=== PATIENT | female | born 1970 | race American Indian/Alaskan Native ===

== ENCOUNTER 2018-07-30 04:39 | Emergency (ER) | payer OTHER ==
[2018-07-30 04:48] VITALS: BP 160/99
[2018-07-30] MEDS ORDERED: DECADRON IM ONE (07:22)
[2018-07-30] MEDS ORDERED: TORADOL IM ONE (07:22)
--- NOTE | 2018-07-30 08:01 | Emergency Department Report ---
Minor Respiratory (Peds) - HPI Chief Complaint: Headache Stated Complaint: ELEVATED BP Time Seen by Provider: 07/30/18 07:11 Duration: 1 Day Pain Location: Other (HEAD) Pain Severity: Moderate Symptoms: Yes Able to Tolerate Fluids, Yes Good Urine Output, Yes Active and Alert, No Fever, No Rhinorrhea, No Sore Throat, No Ear Pain, No Cough, No Shortness of Breath, No Sick Contacts Other History: Patient is a pleasant 48-year-old -[place] female who comes to the ER this morning with a headache. She is on Norvasc 10 mg daily. She took it yesterday morning. However she went to work and developed a headache so she took her Norvasc again which was approximately 18 hours later. Her blood pressure was elevated at that time. Upon coming to the ER though her blood pressure is 160/99. On exam patient reports a mild left-sided headache. She has no fever. No sinus symptoms. No trauma. Past medical history hypertension. Daily medications amlodipine ED Review of Systems ROS: Stated complaint: ELEVATED BP Other details as noted in HPI Comment: All other systems reviewed and negative Constitutional: denies: chills Eyes: denies: eye pain ENT: denies: ear pain Respiratory: denies: cough Cardiovascular: denies: palpitations Endocrine: denies: flushing Gastrointestinal: denies: nausea Genitourinary: denies: urgency Neurological: as per HPI, headache Psychiatric: denies: anxiety Hematological/Lymphatic: denies: easy bleeding Pediatric Past Medical History - Surgeries & Procedures Additional Surgical History: hyster. shoulder and knee - Chronic Health Problems Hx Asthma: No Hx Diabetes: No Hx HIV: No Hx Renal Disease: No Hx Sickle Cell Disease: No Hx Seizures: No Peds Minor Resp. exam - Exam General: Vital signs noted. No distress. Alert and acting appropriately. s1s2 lungs cta abd snt no edema noted no focal neuro def cn intact ambulatory Peds HEENT: Pharyngeal Erythema: No, Pharyngeal Exudates: No, Moist Mucous Membranes: Yes, Rhinorrhea: No, Conjuctival Injection: No Ear: Neither TM Bulge, Neither TM Erythema, Neither EAC Discharge Peds neck exam: Adenopathy: No, Supple: Yes Peds Lung exam: Good Air Exchange: Yes, Wheezes: No, Stridor: No, Cough: No, Nasal Flaring: No, Retractions: No, Use of Accessory Muscles: No Heart: Yes Regular, No Murmur Peds abdomen: Abdominal Tenderness: No, Peritoneal Signs: No, Normal Bowel S ounds: Yes, Distention: No Peds Skin Exam: Rash: No, Eczema: No Neurologic: Alert and oriented, no deficits. Musculoskeletal: Unremarkable. ED Course Vital Signs 07/30/18 04:44 Temperature 98.8 F Pulse Rate 97 H Respiratory 100 H Rate Blood Pressure 160/99 ED Medical Decision Making - Medical Decision Making medicated for headache with relief blood pressure rechecked and 136/80 pt was fearful when her bp was inc which resulted in the ER visit pt was reassured and educated she will keep bp log to take to her pcp discussed dietary modifications on dc VSS no complaints ambulatory and with a follow up plan of care. Critical care attestation.: If time is entered above; I have spent that time in minutes in the direct care of this critically ill patient, excluding procedure time. ED Disposition Clinical Impression: Hypertension, Headache Disposition: DC-01 TO HOME OR SELFCARE Is pt being admited?: No Does the pt Need Aspirin: No Condition: Stable Instructions: Hypertension (ED) Additional Instructions: DIET TOLERATED TODAY DRINK A LOT OF WATER TODAY ACTIVITY TOLERATED FOLLOW UP WITH PCP SHOULD SYMPTOMS PERSIST TAKE BP MED INSTRUCTED BP LOG EVERY DAY WE DISCUSSED MED ORDERED HERE TODAY Prescriptions: Ketorolac [Toradol] 10 mg PO Q6H PRN #10 tablet PRN Reason: Pain Referrals: TED ALEXANDRA MD [Primary Care Provider] - 3-5 Days Forms: Work/School Release Form(ED) Time of Disposition: 07:59
== END 2018-07-30 08:11 | disposition home or self-care (01) ==
LOC: ED 04:39
DX: I10 Essential (primary) hypertension (principal)
CPT/HCPCS: 96372; 99282; J1100; J1885

== ENCOUNTER 2018-10-02 04:43 | Emergency (ER) | payer OTHER ==
[2018-10-02] MEDS ORDERED: FIORICET PO ONE (08:17)
[2018-10-02] MEDS ORDERED: ZOFRAN ODT PO ONE (08:17)
--- NOTE | 2018-10-02 09:04 | Emergency Department Report ---
ED Headache HPI - General Chief Complaint: Headache Time Seen by Provider: 10/02/18 07:56 - History of Present Illness Timing/Duration: 24 hours Quality: mild, moderate Head Injury Location: frontal, occipital Recent Head Trauma: no recent headache/trauma, occasional headaches Associated Symptoms: denies: confusion, fatigue, facial pain, loss of conscious ness, nausea/vomiting, nasal congestion, nasal drainage Allergies/Adverse Reactions: Allergies No Known Allergies Allergy (Verified 07/30/18 04:47) Home Medications: Ambulatory Orders Ketorolac [Toradol] 10 mg PO Q6H PRN #10 tablet 07/30/18 Butalb/Acetamin/Caff 50-325-40 [Fioricet] 2 tab PO TID #30 tablet 10/02/18 Cyclobenzaprine [Flexeril] 10 mg PO QHS PRN #20 tablet 10/02/18 ED Review of Systems ROS: Stated complaint: Other details as noted in HPI Comment: All other systems reviewed and negative ED Past Medical Hx - Past Medical History Hx Hypertension: Yes Hx Diabetes: No Hx Renal Disease: No Hx Sickle Cell Disease: No Hx Seizures: No Hx Asthma: No Hx HIV: No - Surgical History Hx Cholecystectomy: Yes Additional Surgical History: hyster. shoulder and knee - Social History Smoking Status: Never Smoker Substance Use Type: Alcohol - Medications Home Medications: Home Medications Medication Instructions Recorded Confirmed Last Taken Type Ketorolac [Toradol] 10 mg PO Q6H PRN #10 tablet 07/30/18 Unknown Rx Butalb/Acetamin/Caff 50-325-40 2 tab PO TID #30 tablet 10/02/18 Unknown Rx [Fioricet] Cyclobenzaprine [Flexeril] 10 mg PO QHS PRN #20 tablet 10/02/18 Unknown Rx ED Physical Exam - General Limitations: No Limitations General appearance: alert, in no apparent distress - Head Head exam: Present: atraumatic, normocephalic - Eye Eye exam: Present: normal appearance - ENT ENT exam: Present: mucous membranes moist - Neck Neck exam: Present: normal inspection - Respiratory Respiratory exam: Present: normal lung sounds bilaterally. Absent: respiratory distress - Cardiovascular Cardiovascular Exam: Present: regular rate, normal rhythm. Absent: systolic murmur, diastolic murmur, rubs, gallop - GI/Abdominal GI/Abdominal exam: Present: soft, normal bowel sounds - Extremities Exam Extremities exam: Present: normal inspection - Back Exam Back exam: Present: normal inspection - Neurological Exam Neurological exam: Present: alert, oriented X3, normal gait - Expanded Neurological Exam Expanded Patient oriented to: Present: person, place, time Speech: Present: fluid speech Cerebellar function: Finger to Nose: Normal Sensory exam: Upper Extremity Light Touch: Normal, Lower Extremity Light Touch: Normal Motor strength exam: RUE: 5, LUE: 5, RLE: 5, LLE: 5 Best Eye Response ([place]): (4) open spontaneously Best Motor Response ([place]): (6) obeys commands Best Verbal Response ([place]): (5) oriented Lucille Total: 15 - Psychiatric Psychiatric exam: Present: normal affect, normal mood - Skin Skin exam: Present: warm, dry, intact, normal color. Absent: rash ED Course Vital Signs 10/02/18 04:43 Temperature 98.0 F Pulse Rate 84 Respiratory 18 Rate Blood Pressure 134/87 [Right] O2 Sat by Pulse 100 Oximetry ED Medical Decision Making - Medical Decision Making This is a 48-year-old female with a history of migraine who presents with acute onset of a headache Patient received 2 tablets of Fioricet and Zofran in the ED. Vital signs are normal patient is in no acute distress Discussed with patient follow-up with primary care physician. Discussed the patient and take medications as prescribed. Patient has no neurological deficit. Patient is alert and oriented 3 and understands all instructions given. Discussed drowsiness effect of Flexeril makes her drowsy and not to operate machinery while taking flexeril Critical care attestation.: If time is entered above; I have spent that time in minutes in the direct care of this critically ill patient, excluding procedure time. ED Disposition Clinical Impression: Headache, migraine Disposition: DC-01 TO HOME OR SELFCARE Is pt being admited?: No Does the pt Need Aspirin: No Condition: Stable Instructions: Tension Headache (ED), Migraine Headache (ED), Trigger Point Pain (ED), Fibromyalgia (ED) Additional Instructions: Make sure to follow up with the primary care physician as discussed. Take all your medications as you've been prescribed. Patient should continue taking her blood pressure medication and keep her blood pressure controlled. If you have any worsening symptoms or develop new symptoms please return to ED immediately. Prescriptions: Cyclobenzaprine [Flexeril] 10 mg PO QHS PRN #20 tablet PRN Reason: Muscle Spasm Butalb/Acetamin/Caff 50-325-40 [Fioricet] 2 tab PO TID #30 tablet Referrals: [facility] MD PATRICIA [Primary Care Provider] - 3-5 Days ARMANDO MURO MD [Staff Physician] - 3-5 Days LOBITO MCCLELLAN MD [Referring] - 3-5 Days DEJAN GOMEZ MD [Staff Physician] - 3-5 Days Forms: Work/School Release Form(ED) Time of Disposition: 09:11
[2018-10-02 09:22] VITALS: BP 128/74
== END 2018-10-02 09:21 | disposition home or self-care (01) ==
LOC: ED 04:43
DX: G43.909 Migraine, unspecified, not intractable, without status migrainosus (principal); I10 Essential (primary) hypertension; Z90.49 Acquired absence of other specified parts of digestive tract
CPT/HCPCS: 99282; Q0162

== ENCOUNTER 2018-10-03 22:07 | Emergency (ER) | payer OTHER ==
[2018-10-03 22:28] VITALS: BP 138/91
--- NOTE | 2018-10-03 22:28 | Emergency Department Report ---
Blank Doc - Documentation Documentation: 48 y old female presents with headache and body aches and nausea denies f/n/v/d describes aching pain labs cxr acc eval
[2018-10-03 23:03] LABS: Basophils % (Auto) 0.6 % (0.0-1.8); Eosinophils # (Auto) 0.1 K/mm3 (0.0-0.4); Eosinophils % (Auto) 2.6 % (0.0-4.3); Lymphocytes # (Auto) 2.1 K/mm3 (1.2-5.4); Lymphocytes % (Auto) 45.7 % (13.4-35.0); Mean Corpuscular HGB Conc 33 % (30-34); Mean Corpuscular Volume 87 fl (79-97); Monocytes # (Auto) 0.4 K/mm3 (0.0-0.8); Platelet Count 362 K/mm3 (140-440); Red Blood Count 4.51 M/mm3 (3.65-5.03)
--- NOTE | 2018-10-03 23:03 | XRay Report ---
PROCEDURE: XR CHEST ROUTINE 2V TECHNIQUE: Chest radiograph , PA and lateral views. HISTORY: Chest pain COMPARISONS: None . FINDINGS: Heart: Normal. Mediastinum/Vessels: Normal. Lungs/Pleural space: Normal. Bony thorax: No acute osseous abnormality. Life support devices: None. IMPRESSION: No acute cardiopulmonary abnormality. This document is electronically signed by Danni Houston MD., Oct 03 2018 11:01:40 PM ET
[2018-10-03 23:31] LABS: Alanine Aminotransferase 15 units/L (7-56); Albumin 4.5 g/dL (3.9-5); BUN/Creatinine Ratio 15; Blood Urea Nitrogen 12 mg/dL (7-17); Calcium 9.8 mg/dL (8.4-10.2); Hemolysis Index 9
[2018-10-04] MEDS ORDERED: REGLAN PO ONE (01:13)
[2018-10-04] MEDS ORDERED: TYLENOL PO ONE (01:13)
[2018-10-04] MEDS ORDERED: DECADRON IM ONE (01:13)
[2018-10-04] MEDS ORDERED: BENADRYL PO ONE (01:13)
--- NOTE | 2018-10-04 01:14 | Emergency Department Report ---
ED General Adult HPI - General Chief complaint: Pain General Stated complaint: HEADACHE/BODY ACHES Time Seen by Provider: 10/03/18 22:23 Source: patient Mode of arrival: Ambulatory Limitations: No Limitations - History of Present Illness Initial comments: pt is a 48 y/o aam who presenst frontal headache x 1 week intermittent pt does have hx of headache to same location and duration there is no n/v no photophobia pt is ambulatry to baseline per patient. Onset/Timin -: week(s) Location: head Radiation: neck Severity scale (0 -10): 5 Quality: sharp, other (spasm ) Consistency: constant Improves with: rest Worsens with: movement, other (activity) Associated Symptoms: headaches. denies: confusion, chest pain, fever/chills, nausea/vomiting, weakness Treatments Prior to Arrival: none - Related Data Previous Rx's Medication Instructions Recorded Last Taken Type Ketorolac [Toradol] 10 mg PO Q6H PRN #10 tablet 07/30/18 Unknown Rx Butalb/Acetamin/Caff 50-325-40 2 tab PO TID #30 tablet 10/02/18 Unknown Rx [Fioricet] Cyclobenzaprine [Flexeril] 10 mg PO QHS PRN #20 tablet 10/02/18 Unknown Rx Acetaminophen [Acetaminophen TAB] 1,000 mg PO Q6HR PRN #30 tablet 10/04/18 Unknown Rx Metoclopramide [Reglan] 10 mg PO Q6H PRN #30 tablet 10/04/18 Unknown Rx diphenhydrAMINE [Benadryl CAP] 25 mg PO Q6HR PRN #30 capsule 10/04/18 Unknown Rx Allergies Allergy/AdvReac Type Severity Reaction Status Date / Time No Known Allergies Allergy Verified 07/30/18 04:47 ED Review of Systems ROS: Stated complaint: HEADACHE/BODY ACHES Other details as noted in HPI Constitutional: denies: chills, fever Eyes: denies: eye pain, eye discharge, vision change ENT: denies: ear pain, throat pain Respiratory: denies: cough, shortness of breath, wheezing Cardiovascular: denies: chest pain, palpitations Endocrine: no symptoms reported Gastrointestinal: as per HPI. denies: nausea, vomiting Genitourinary: denies: urgency, dysuria, discharge Musculoskeletal: denies: back pain, joint swelling, arthralgia Skin: denies: rash, lesions Neurological: headache. denies: weakness, numbness, paresthesias, confusion, abnormal gait, vertigo Psychiatric: denies: anxiety, depression Hematological/Lymphatic: denies: easy bleeding, easy bruising ED Past Medical Hx - Past Medical History Hx Hypertension: Yes Hx Diabetes: No Hx Renal Disease: No Hx Sickle Cell Disease: No Hx Seizures: No Hx Asthma: No Hx HIV: No - Surgical History Hx Cholecystectomy: Yes Additional Surgical History: hyster, right knee, right shoulder. shoulder and knee - Social History Smoking Status: Never Smoker Substance Use Type: None - Medications Home Medications: Home Medications Medication Instructions Recorded Confirmed Last Taken Type Ketorolac [Toradol] 10 mg PO Q6H PRN #10 tablet 07/30/18 Unknown Rx Butalb/Acetamin/Caff 50-325-40 2 tab PO TID #30 tablet 10/02/18 Unknown Rx [Fioricet] Cyclobenzaprine [Flexeril] 10 mg PO QHS PRN #20 tablet 10/02/18 Unknown Rx Acetaminophen [Acetaminophen TAB] 1,000 mg PO Q6HR PRN #30 tablet 10/04/18 U nknown Rx Metoclopramide [Reglan] 10 mg PO Q6H PRN #30 tablet 10/04/18 Unknown Rx diphenhydrAMINE [Benadryl CAP] 25 mg PO Q6HR PRN #30 capsule 10/04/18 Unknown Rx ED Physical Exam - General Limitations: No Limitations General appearance: alert, in no apparent distress - Head Head exam: Present: atraumatic, normocephalic, normal inspection - Eye Eye exam: Present: normal appearance, PERRL, EOMI Pupils: Present: normal accommodation - ENT ENT exam: Present: normal orophraynx, mucous membranes moist, TM's normal bilaterally, normal external ear exam - Neck Neck exam: Present: normal inspection, full ROM. Absent: tenderness (rom intact to all black without restriction no posterior vertebral point tenderness ), m eningismus, lymphadenopathy, thyromegaly - Respiratory Respiratory exam: Present: normal lung sounds bilaterally. Absent: respiratory distress, wheezes, stridor, chest wall tenderness - Cardiovascular Cardiovascular Exam: Present: regular rate, normal rhythm, normal heart sounds. Absent: systolic murmur, diastolic murmur, rubs, gallop - GI/Abdominal GI/Abdominal exam: Present: soft, normal bowel sounds. Absent: tenderness, bruit, hernia - Rectal Rectal exam: Present: deferred - Extremities Exam Extremities exam: Present: normal inspection, full ROM, normal capillary refill. Absent: tenderness - Back Exam Back exam: Present: normal inspection, full ROM. Absent: tenderness, CVA tenderness (R), CVA tenderness (L), muscle spasm, paraspinal tenderness, marika tebral tenderness, rash noted - Neurological Exam Neurological exam: Present: alert, oriented X3, CN II-XII intact, normal gait, reflexes normal. Absent: altered, motor sensory deficit - Expanded Neurological Exam Expanded Patient oriented to: Present: person, place, time Speech: Present: fluid speech Cranial nerves: EOM's Intact: Normal, Gag Reflex: Normal, Tongue Deviation: Normal, Nystagmus: Normal, Facial Sensation: Normal Cerebellar function: Finger to Nose: Normal, Heel to Reid: Normal, Romberg: Normal Upper motor neuron: Kiel Neglect: Normal, Pronator Drift: Normal, Babinski Sign: Normal, Sensory Extinction: Normal Sensory exam: Upper Extremity Light Touch: Normal, Upper Extremity Pin Prick: Normal, Upper Extremity Temperature: Normal, UE 2 Point Discrimination: Normal, Lower Extremity Light Touch: Normal, Lower Extremity Pin Prick: Normal, Lower Extremity Temperature: Normal, LE 2 Point Discrimination: Normal Motor strength exam: RUE: 5, LUE: 5, RLE: 5, LLE: 5 DTR: bicep (R): 2+, bicep (L): 2+, ankle (R): 2+, ankle (L): 2+ Best Eye Response ([place]): (4) open spontaneously Best Motor Response ([place]): (6) obeys commands Best Verbal Response ([place]): (5) oriented Lucille Total: 15 - Psychiatric Psychiatric exam: Present: normal affect, normal mood - Skin Skin exam: Present: warm, dry, intact, normal color. Absent: rash ED Course Vital Signs 10/03/18 22:25 Temperature 98.3 F Pulse Rate 85 Respiratory 18 Rate Blood Pressure 138/91 O2 Sat by Pulse 100 Oximetry ED Medical Decision Making - Lab Data Result diagrams: 10/03/18 22:41 10/03/18 22:41 - Radiology Data Radiology results: report reviewed, image reviewed Findings [facility] [address] [place] [address] XRay Report Signed Patient: LOUIS SMITH MR #: [id number] : 1970 Acct:[id number] Age/Sex: 48 / F ADM Date: 10/03/18 Loc: ED Attending Dr: Ordering Physician: LISA PALENCIA Date of Service: 10/03/18 Procedure(s): XR chest routine 2V Accession Number(s): [id number] cc: LISA PALENCIA Fluoro Time In Minutes: PROCEDURE: XR CHEST ROUTINE 2V TECHNIQUE: Chest radiograph , PA and lateral views. HISTORY: Chest pain COMPARISONS: None . FINDINGS: Heart: Normal. Mediastinum/Vessels: Normal. Lungs/Pleural space: Normal. Bony thorax: No acute osseous abnormality. Life support devices: None. IMPRESSION: No acute cardiopulmonary abnormality. This document is electronically signed by Danni Houston MD., Oct 03 2018 11:01:40 PM ET Transcribed By: [facility] Dictated By: DANNI HOUSTON MD Electronically Authenticated By: DANNI HOUSTON MD Signed Date/Time: 10/03/182302 DD/ 39 TD/TT: 10/03/182249 - Medical Decision Making CXR: Negative, patient denies sinus pain, URI symptoms, Headache is improved patient is tolerating by mouth intake there is no nausea vomiting at this time plan follow up with neurology as directed continue Fioricet will add Benadryl and Reglan patient has PCP Dr. [facility] patient DC to home in stable condition at this time Critical care attestation.: If time is entered above; I have spent that time in minutes in the direct care of this critically ill patient, excluding procedure time. ED Disposition Clinical Impression: Headache Qualifiers: Headache type: tension-type Headache chronicity pattern: acute headache Intractability: not intractable Qualified Code(s): G44.209 - Tension-type headache, unspecified, not intractable Disposition: DC-01 TO HOME OR SELFCARE Is pt being admited?: No Does the pt Need Aspirin: No Condition: Stable Instructions: Tension Headache (ED), Acute Headache (ED) Prescriptions: Acetaminophen [Acetaminophen TAB] 1,000 mg PO Q6HR PRN #30 tablet PRN Reason: pain diphenhydrAMINE [Benadryl CAP] 25 mg PO Q6HR PRN #30 capsule PRN Reason: Headache Metoclopramide [Reglan] 10 mg PO Q6H PRN #30 tablet PRN Reason: Headache Referrals: [facility] [Other] - 3-5 Days Forms: Work/School Release Form(ED) Time of Disposition: 02:45
== END 2018-10-04 03:00 | disposition home or self-care (01) ==
LOC: ED 22:07
DX: G44.209 Tension-type headache, unspecified, not intractable (principal); I10 Essential (primary) hypertension; Z90.49 Acquired absence of other specified parts of digestive tract; Z90.710 Acquired absence of both cervix and uterus
CPT/HCPCS: 36415; 71046; 80053; 85025; 96372; 99284; J1100

== ENCOUNTER 2019-07-10 07:59 | Observation (INO) | payer OTHER ==
[2019-07-10] MEDS ORDERED: NITROGLYCERIN 2% OINT 1 GM TP ONE (08:53)
[2019-07-10] MEDS ORDERED: fentaNYL 100 MCG/2 ML INJ IV ONE (08:53)
[2019-07-10] MEDS ORDERED: ONDANSETRON 4 MG/2 ML INJ IV ONE (08:53)
[2019-07-10] MEDS ORDERED: ASPIRIN 325 MG TAB PO ONE (08:54)
--- NOTE | 2019-07-10 08:59 | Emergency Department Report ---
HPI - General Chief Complaint: Chest Pain Time Seen by Provider: 07/10/19 08:47 - HPI HPI: Room 26 The patient is a 49-year-old female presented with a chief complaint of chest pain. Patient states she has had constant substernal chest pain radiating to her right shoulder for the past 3 days. Patient describes the pain as a pressure associated with shortness of breath nausea/vomiting. Patient denies diaphoresis. Patient admits to occasional pleurisy. Patient currently gives her chest pain score 7/10. The patient states her last stress test occurred over 5 years ago and she's never had a heart cath ED Past Medical Hx - Past Medical History Previous Medical History?: Yes Hx Hypertension: Yes Additional medical history: Lupus, fibromyalgia - Surgical History Past Surgical History?: Yes Hx Cholecystectomy: Yes Additional Surgical History: hyster, right knee, right shoulder. shoulder and knee - Family History Family history: no significant - Social History Smoking Status: Never Smoker Substance Use Type: None (Denies illicit drug use), Alcohol (Occasional) - Medications Home Medications: Home Medications Medication Instructions Recorded Confirmed Last Taken Type Ketorolac [Toradol] 10 mg PO Q6H PRN #10 tablet 07/30/18 Unknown Rx Butalb/Acetamin/Caff 50-325-40 2 tab PO TID #30 tablet 10/02/18 Unknown Rx [Fioricet 50-325-40] Cyclobenzaprine [Flexeril] 10 mg PO QHS PRN #20 tablet 10/02/18 Unknown Rx Acetaminophen [Acetaminophen TAB] 1,000 mg PO Q6HR PRN #30 tablet 10/04/18 Unknown Rx Metoclopramide [Reglan] 10 mg PO Q6H PRN #30 tablet 10/04/18 Unknown Rx diphenhydrAMINE [Benadryl CAP] 25 mg PO Q6HR PRN #30 capsule 10/04/18 Unknown Rx ED Review of Systems ROS: Stated complaint: CHEST PAIN/ACHES Other details as noted in HPI Constitutional: denies: diaphoresis Eyes: denies: eye pain ENT: denies: throat pain Respiratory: shortness of breath Cardiovascular: chest pain Endocrine: no symptoms reported Gastrointestinal: nausea, vomiting Genitourinary: denies: dysuria Musculoskeletal: denies: back pain Neurological: headache Physical Exam - Physical Exam Vital Signs: Vital Signs 02/12/20 08:04 Temperature 99.9 F H Pulse Rate 83 Respiratory 18 Rate Blood Pressure 149/85 O2 Sat by Pulse 100 Oximetry Physical Exam: GEN: WD WN female lying on stretcher in NAD HEENT: NCAT, EOMI NECK: trachea midline PULM: CTA bilat. No resp distress noted CV: rrr no m/r/g ABD: s/nt/nd SKIN: no diaphoresis NEURO: GCS 15 MUSCULOSKELETAL: No evidence of acute injury ED Course Vital Signs 07/10/19 08:04 Temperature 99.9 F H Pulse Rate 83 Respiratory 18 Rate Blood Pressure 149/85 O2 Sat by Pulse 100 Oximetry ED Medical Decision Making - Lab Data Result diagrams: 07/10/19 09:13 07/10/19 09:13 Laboratory Tests 07/10/19 07/10/19 07/10/19 09:13 09:13 09:13 WBC 3.1 L RBC 4.51 Hgb 13.2 Hct 38.9 MCV 86 MCH 29 MCHC 34 RDW 14.1 Plt Count 326 Lymph % (Auto) 37.1 H Collin % (Auto) 11.9 H Eos % (Auto) 3.4 Baso % (Auto) 1.7 Lymph # 1.2 Collin # 0.4 Eos # 0.1 Baso # 0.1 Seg Neutrophils % 45.9 Seg Neutrophils # 1.4 L D-Dimer 139.46 Sodium 141 Potassium 4.0 Chloride 102.8 Carbon Dioxide 25 Anion Gap 17 BUN 7 Creatinine 0.7 Estimated GFR > 60 BUN/Creatinine Ratio 10 Glucose 85 Calcium 9.2 Total Creatine Kinase 191 H CK-MB (CK-2) 1.9 CK-MB (CK-2) Rel Index 0.9 Troponin T < 0.010 NT-Pro-B Natriuret Pep 6.97 - EKG Data -: EKG Interpreted by Me EKG shows normal: sinus rhythm Rate: normal - EKG Data When compared to previous EKG there are: previous EKG unavailable Interpretation: other (No ischemic changes seen) - Radiology Data Radiology results: report reviewed (Chest x-ray), image reviewed (Chest x-ray) interpreted by me: Chest x-ray-no focal infiltrates, no pneumothorax Findings [facility] [address] [address] XRay Report Signed Patient: LOUIS SMITH MR #: [id number] : 1970 Acct:[id number] Age/Sex: 49 / F ADM Date: 07/10/19 Loc: ED Attending Dr: Ordering Physician: SACHA CONLEY MD Date of Service: 07/10/19 Procedure(s): XR chest 1V ap Accession Number(s): [id number] cc: SACHA CONLEY MD Fluoro Time In Minutes: CHEST 1 VIEW INDICATION: chest pain. COMPARISON: 10/03/2018. FINDINGS: Support devices: None. Heart: Within normal limits. Lungs/Pleura: No acute air space or interstitial disease. Additional findings: None. IMPRESSION: No acute abnormality. Signer Name: Osbaldo Lind MD Signed: 07/10/2019 10:47 AM Workstation Name: [id number] Transcribed By: ES Dictated By: Osbaldo Lind MD Electronically Authenticated By: Osbaldo Lind MD Signed Date/Time: 07/10/19 104 DD/ 46 TD/TT: - Differential Diagnosis ACS, pericarditis, PE, GERD Critical care attestation.: If time is entered above; I have spent that time in minutes in the direct care of this critically ill patient, excluding procedure time. ED Disposition Clinical Impression: Chest pain Disposition: DC-09 OP ADMIT IP TO THIS HOSP Is pt being admited?: Yes Does the pt Need Aspirin: Yes Condition: Fair Instructions: Chest Pain (ED) Time of Disposition: 11:06 (Hospitalist paged (Dr Wray))
[2019-07-10 09:46] LABS: Basophils # (Auto) 0.1 K/mm3 (0.0-0.1); Basophils % (Auto) 1.7 % (0.0-1.8); Eosinophils # (Auto) 0.1 K/mm3 (0.0-0.4); Eosinophils % (Auto) 3.4 % (0.0-4.3); Hematocrit 38.9 % (30.3-42.9); Hemoglobin 13.2 gm/dl (10.1-14.3); Lymphocytes # (Auto) 1.2 K/mm3 (1.2-5.4); Lymphocytes % (Auto) 37.1 % (13.4-35.0); Mean Corpuscular HGB Conc 34 % (30-34); Mean Corpuscular Volume 86 fl (79-97); Monocytes # (Auto) 0.4 K/mm3 (0.0-0.8); Monocytes % (Auto) 11.9 % (0.0-7.3); Platelet Count 326 K/mm3 (140-440); Red Blood Count 4.51 M/mm3 (3.65-5.03); Red Cell Distribution Width 14.1 % (13.2-15.2)
[2019-07-10 10:11] LABS: Creatine Kinase MB 1.9 ng/mL (0.0-4.0)
[2019-07-10 10:14] LABS: BUN/Creatinine Ratio 10; Blood Urea Nitrogen 7 mg/dL (7-17); Calcium 9.2 mg/dL (8.4-10.2); Hemolysis Index 3
--- NOTE | 2019-07-10 10:51 | XRay Report ---
CHEST 1 VIEW INDICATION: chest pain. COMPARISON: 10/03/2018. FINDINGS: Support devices: None. Heart: Within normal limits. Lungs/Pleura: No acute air space or interstitial disease. Additional findings: None. IMPRESSION: No acute abnormality. Signer Name: Osbaldo Lind MD Signed: 07/10/2019 10:47 AM Workstation Name: [id number]
[2019-07-10] MEDS ORDERED: MORPHINE 4 MG/1 ML INJ IV ONE (11:27)
[2019-07-10] MEDS ORDERED: oxyCODONE /ACETAMINOPHEN 5-325MG TAB PO PRN (15:42)
--- NOTE | 2019-07-10 20:42 | History and Physical Report ---
History of Present Illness Date of examination: 07/10/19 Date of admission: 07/10/19 11:08 Chief complaint: Retrosternal chest pain for 3 days History of present illness: 49-year-old -[place] female with history of hypertension and recurrent headaches comes in for retrosternal chest pain and right-sided chest pain for the past 3 days. Chest pain is dull in character and not radiating. No diaphoresis no palpitations no shortness of breath. Patient states that she is compliant with her blood pressure medications but there are no blood pressure medications on her medication list. Apparently had stress test 5 years ago and never had a cath. Does not take any aspirin. No family history of coronary artery disease. Past Medical History Hypertension: Yes Additional medical history: Lupus, fibromyalgia Surgical History Past Surgical History?: Yes Cholecystectomy: Yes Additional Surgical History: Hysterectomy, right knee surgery, right shoulder surgery. Family History Family history: no significant Social History Smoking Status: Never Smoker Substance Use Type: None (Denies illicit drug use), Alcohol (Occasional) Medications Home Medications: Home Medications Medication Instructions Recorded Confirmed Last Taken Type Ketorolac [Toradol] 10 mg PO Q6H PRN #10 tablet 07/30/18 Unknown Rx Butalb/Acetamin/Caff 50-325-40 2 tab PO TID #30 tablet 10/02/18 Unknown Rx [Fioricet 50-325-40] Cyclobenzaprine [Flexeril] 10 mg PO QHS PRN #20 tablet 10/02/18 Unknown Rx Acetaminophen [Acetaminophen TAB] 1,000 mg PO Q6HR PRN #30 tablet 10/04/18 Unknown Rx Metoclopramide [Reglan] 10 mg PO Q6H PRN #30 tablet 10/04/18 Unknown Rx diphenhydrAMINE [Benadryl CAP] 25 mg PO Q6HR PRN #30 capsule 10/04/18 Unknown Rx Review of Systems ROS: Stated complaint: CHEST PAIN/ACHES Other details as noted in HPI Constitutional: denies: diaphoresis Eyes: denies: eye pain ENT: denies: throat pain Respiratory: shortness of breath Cardiovascular: chest pain Endocrine: no symptoms reported Gastrointestinal: nausea, vomiting Genitourinary: denies: dysuria Musculoskeletal: denies: back pain Neurological: headache Medications and Allergies Allergies Allergy/AdvReac Type Severity Reaction Status Date / Time No Known Allergies Allergy Verified 07/10/19 12:07 Home Medications Medication Instructions Recorded Confirmed Last Taken Type DULoxetine [Cymbalta] 60 mg PO QHS 07/10/19 07/10/19 07/09/19 History Fluticasone [Flonase] 1 puff INHALATION DAILY PRN 07/10/19 07/10/19 07/09/19 History Gabapentin [Neurontin] 300 mg PO Q8HR 07/10/19 07/10/19 1 Day Ago History ~07/09/19 amLODIPine 10 mg PO DAILY 07/10/19 07/10/19 07/09/19 History Active Meds: Active Medications Oxycodone/Acetaminophen (Percocet 5/325) 1 tab PO Q4H PRN PRN Reason: Pain, Moderate (4-6) Last Admin: 07/10/19 15:47 Dose: 1 tab Documented by: Exam - Constitutional Vitals: Temp Pulse Resp BP Pulse Ox 98.4 F 68 20 104/58 98 07/10/19 19:09 07/10/19 19:09 07/10/19 19:09 07/10/19 19:09 07/10/19 19:09 General appearance: Present: no acute distress, well-nourished - EENT Eyes: Present: PERRL ENT: hearing intact, clear oral mucosa - Neck Neck: Present: supple, normal ROM - Respiratory Respiratory effort: normal Respiratory: bilateral: CTA - Cardiovascular Heart rate: 77 Rhythm: regular Heart Sounds: Present: S1 & S2. Absent: rub, click - Extremities Extremities: no ischemia, pulses intact, pulses symmetrical, No edema Peripheral Pulses: within normal limits - Abdominal General gastrointestinal: Present: soft, non-tender, non-distended, normal bowel sounds Female genitourinary: Present: normal - Integumentary Integumentary: Present: clear, warm, dry - Musculoskeletal Musculoskeletal: gait normal, strength equal bilaterally - Psychiatric Psychiatric: appropriate mood/affect, intact judgment & insight - Neurologic Neurologic: CNII-XII intact, moves all extremities - Allied Health Allied health notes reviewed: nursing, case management NANCY score - Nancy Score Age > 65: (0) No Aspirin use within the Past 7 Days: (1) Yes 3 or more CAD Risk Factors: (0) No 2 or more Angina events in past 24 hrs: (0) No Known CAD with more than 50% Stenosis: (0) No Elevated Cardiac Markers: (0) No ST Deviation Greater than 0.5mm: (0) No NANCY Score: 1 Results - Labs CBC & Chem 7: 07/10/19 09:13 07/10/19 09:13 Labs: Laboratory Last Values WBC 3.1 K/mm3 (4.5-11.0) L 07/10/19 09:13 RBC 4.51 M/mm3 (3.65-5.03) 07/10/19 09:13 Hgb 13.2 gm/dl (10.1-14.3) 07/10/19 09:13 Hct 38.9 % (30.3-42.9) 07/10/19 09:13 MCV 86 fl (79-97) 07/10/19 09:13 MCH 29 pg (28-32) 07/10/19 09:13 MCHC 34 % (30-34) 07/10/19 09:13 RDW 14.1 % (13.2-15.2) 07/10/19 09:13 Plt Count 326 K/mm3 (140-440) 07/10/19 09:13 Lymph % (Auto) 37.1 % (13.4-35.0) H 07/10/19 09:13 Kidder % (Auto) 11.9 % (0.0-7.3) H 07/10/19 09:13 Eos % (Auto) 3.4 % (0.0-4.3) 07/10/19 09:13 Baso % (Auto) 1.7 % (0.0-1.8) 07/10/19 09:13 Lymph # 1.2 K/mm3 (1.2-5.4) 07/10/19 09:13 Kidder # 0.4 K/mm3 (0.0-0.8) 07/10/19 09:13 Eos # 0.1 K/mm3 (0.0-0.4) 07/10/19 09:13 Baso # 0.1 K/mm3 (0.0-0.1) 07/10/19 09:13 Seg Neutrophils % 45.9 % (40.0-70.0) 07/10/19 09:13 Seg Neutrophils # 1.4 K/mm3 (1.8-7.7) L 07/10/19 09:13 D-Dimer 139.46 ng/mlDDU (0-234) 07/10/19 09:13 Sodium 141 mmol/L (137-145) 07/10/19 09:13 Potassium 4.0 mmol/L (3.6-5.0) 07/10/19 09:13 Chloride 102.8 mmol/L (98-107) 07/10/19 09:13 Carbon Dioxide 25 mmol/L (22-30) 07/10/19 09:13 Anion Gap 17 mmol/L 07/10/19 09:13 BUN 7 mg/dL (7-17) 07/10/19 09:13 Creatinine 0.7 mg/dL (0.7-1.2) 07/10/19 09:13 Estimated GFR > 60 ml/min 07/10/19 09:13 BUN/Creatinine Ratio 10 % 07/10/19 09:13 Glucose 85 mg/dL (65-100) 07/10/19 09:13 Calcium 9.2 mg/dL (8.4-10.2) 07/10/19 09:13 Total Creatine Kinase 191 units/L (30-135) H 07/10/19 09:13 CK-MB (CK-2) 1.9 ng/mL (0.0-4.0) 07/10/19 09:13 CK-MB (CK-2) Rel Index 0.9 (0-4) 07/10/19 09:13 Troponin T < 0.010 ng/mL (0.00-0.029) 07/10/19 09:13 NT-Pro-B Natriuret Pep 6.97 pg/mL (0-900) 07/10/19 09:13 Short CBC 07/10/19 Range/Units 09:13 WBC 3.1 L (4.5-11.0) K/mm3 Hgb 13.2 (10.1-14.3) gm/dl Hct 38.9 (30.3-42.9) % Plt Count 326 (140-440) K/mm3 BMP 07/10/19 09:13 Sodium 141 Potassium 4.0 Chloride 102.8 Carbon Dioxide 25 BUN 7 Creatinine 0.7 Glucose 85 Calcium 9.2 Cardiac Enzymes 07/10/19 Range/Units 09:13 Total Creatine Kinase 191 H (30-135) units/L CK-MB (CK-2) 1.9 (0.0-4.0) ng/mL Troponin T < 0.010 (0.00-0.029) ng/mL - Imaging and Cardiology EKG: report reviewed (Sinus rhythm heart rate of 77/min no acute ST-T wave changes) Chest x-ray: report reviewed (No acute finding) Assessment and Plan Advance Directives: Yes VTE prophylaxis?: Chemical Plan of care discussed with patient/family: Yes - Patient Problems (1) Chest pain Current Visit: Yes Status: Acute Qualifiers: Chest pain type: unspecified Qualified Code(s): R07.9 - Chest pain, unspecified Plan to address problem: Chest pain protocol Serial troponins Treadmill stress test in the morning Discharge if negative (2) Tension headache Current Visit: Yes Status: Chronic Plan to address problem: Intermittent Fioricet 40/325/50 3 times daily as needed (3) DVT prophylaxis Current Visit: Yes Status: Acute Plan to address problem: On heparin 5000 every 12 and GI prophylaxis
[2019-07-10] MEDS ORDERED: ONDANSETRON 4 MG/2 ML INJ IV PRN (21:03)
[2019-07-10] MEDS ORDERED: METOCLOPRAMIDE 10 MG/2 ML INJ IV PRN (21:03)
[2019-07-10] MEDS ORDERED: ACETAMINOPHEN 325 MG TAB PO PRN (21:03)
[2019-07-10] MEDS: HYDROmorphone 1 MG/1 ML INJ IV PRN (21:29)
[2019-07-10] MEDS: FAMOTIDINE 20 MG TAB PO SCH (21:31)
[2019-07-11] MEDS: HYDROmorphone 1 MG/1 ML INJ IV PRN ×2 (05:38→15:00)
[2019-07-11 06:09] LABS: Basophils % (Auto) 0.8 % (0.0-1.8); Eosinophils # (Auto) 0.2 K/mm3 (0.0-0.4); Eosinophils % (Auto) 5.5 % (0.0-4.3); Hematocrit 37.1 % (30.3-42.9); Hemoglobin 12.3 gm/dl (10.1-14.3); Lymphocytes # (Auto) 1.2 K/mm3 (1.2-5.4); Lymphocytes % (Auto) 37.9 % (13.4-35.0); Mean Corpuscular HGB Conc 33 % (30-34); Mean Corpuscular Volume 87 fl (79-97); Monocytes # (Auto) 0.4 K/mm3 (0.0-0.8); Monocytes % (Auto) 12.7 % (0.0-7.3); Platelet Count 312 K/mm3 (140-440); Red Blood Count 4.25 M/mm3 (3.65-5.03); Red Cell Distribution Width 14.3 % (13.2-15.2)
[2019-07-11 06:35] LABS: Alanine Aminotransferase 20 units/L (7-56); Albumin 4.2 g/dL (3.9-5); BUN/Creatinine Ratio 12; Blood Urea Nitrogen 11 mg/dL (7-17); Calcium 9.1 mg/dL (8.4-10.2); Hemolysis Index 6
--- NOTE | 2019-07-11 06:50 | Event Note ---
Date: 07/11/19 After speaking with nuclear medicine regarding stress test patient states that she is unable to walk on treadmill due to her lupus. Will cancel treadmill stress test and order Lexiscan
[2019-07-11] MEDS ORDERED: REGADENOSON 0.4 MG/5 ML INJ IV ONE ×2 (07:50→07:52)
[2019-07-11] MEDS: FAMOTIDINE 20 MG TAB PO SCH (11:10)
--- NOTE | 2019-07-11 14:59 | Discharge Summary ---
Providers - Providers Date of Admission: 07/10/19 11:08 Date of discharge: 07/11/19 Attending physician: DOUG FERREIRA Primary care physician: SENIOR IT BUSINESS ANALYST Hospitalization Condition: Fair Pertinent studies: CXR Stress test Hospital course: Discharge diagnosis: Chest pain, likely GERD Tension headache HTN, stable h/o lupus Disposition: DC-01 TO HOME OR SELFCARE Time spent for discharge: 34 minutes Core Measure Documentation - Palliative Care Palliative Care/ Comfort Measures: Not Applicable - Core Measures Any of the following diagnoses?: none Exam - Constitutional Vitals: Temp Pulse Resp BP Pulse Ox 98.0 F 74 16 116/65 97 07/11/19 04:01 07/11/19 08:40 07/11/19 08:40 07/11/19 10:18 07/11/19 08:40 General appearance: Present: no acute distress, well-nourished - EENT Eyes: Present: PERRL ENT: hearing intact, clear oral mucosa - Neck Neck: Present: supple, normal ROM - Respiratory Respiratory effort: normal Respiratory: bilateral: CTA - Cardiovascular Heart Sounds: Present: S1 & S2. Absent: rub, click - Extremities Extremities: pulses symmetrical, No edema Peripheral Pulses: within normal limits - Abdominal General gastrointestinal: Present: soft, non-tender, non-distended, normal bowel sounds - Integumentary Integumentary: Present: clear, warm, dry - Musculoskeletal Musculoskeletal: gait normal, strength equal bilaterally - Psychiatric Psychiatric: appropriate mood/affect, intact judgment & insight - Neurologic Neurologic: CNII-XII intact, moves all extremities Plan Activity: advance as tolerated Weight Bearing Status: Weight Bear as Tolerated Diet: low fat Follow up with: PRIMARY CARE, [Primary Care Provider] - 7 Days Prescriptions: Pantoprazole [Protonix] 40 mg PO QDAY #30 tablet
[2019-07-11] MEDS ORDERED: FLUTICASONE PROPIONATE NASAL SPRAY 16 GM NS PRN (15:00)
[2019-07-11] MEDS ORDERED: PANTOPRAZOLE 40 MG TAB PO SCH (15:00)
[2019-07-11] MEDS ORDERED: amLODIPine 10 MG TAB PO SCH (16:00)
[2019-07-11 17:12] VITALS: BP 110/78
--- NOTE | 2019-07-11 21:38 | Treadmill Report ---
THALLIUM STRESS TEST REPORT LEFT VENTRICLE: Left ventricular chamber size is within normal spread. Perfusion study demonstrates mild breast attenuation artifact, otherwise homogeneous uptake of the tracer in all segments, no significant defects identified. Gated analysis demonstrates normal left ventricular systolic function, ejection fraction 73%. CONCLUSION: Normal myocardial perfusion study. JOB# [id number] CA/NTS
[2019-07-11] MEDS ORDERED: DULoxetine 30 MG CAP PO SCH (22:00)
[2019-07-11] MEDS ORDERED: GABAPENTIN 300 MG CAP PO SCH (22:00)
== END 2019-07-11 18:27 | disposition home or self-care (01) ==
LOC: ED 07:59 → 4A 11:08
PROVIDERS: ADMIT Internal Medicine; ATTEND Internal Medicine
DX: R07.89 Other chest pain (principal); R11.2 Nausea with vomiting, unspecified; M32.9 Systemic lupus erythematosus, unspecified; G44.209 Tension-type headache, unspecified, not intractable; Z90.49 Acquired absence of other specified parts of digestive tract; Z90.710 Acquired absence of both cervix and uterus; Z98.890 Other specified postprocedural states
CPT/HCPCS: 36415; 71045; 78452; 80048; 80053; 82550; 82553; 83036; 83880; 84484; 85025; 85379; 93005; 93010; 93017; 96374; 96375; 96376; 99285; A9502; G0378; J1170; J2270; J2405; J2785; J3010

== ENCOUNTER 2022-01-07 16:38 | Emergency (ER) | payer SELFPAY ==
[2022-01-07 19:12] VITALS: BP 135/85
== END 2022-01-09 09:45 | disposition left against medical advice (07) ==
LOC: ED 16:38
DX: R07.9 Chest pain, unspecified (principal); Z53.21 Procedure and treatment not carried out due to patient leaving prior to being seen by health care provider